=== PATIENT | female | born 1985 | race Caucasian/White ===

== ENCOUNTER → 2022-08-22 09:57 | Outpatient (CLI) | payer OTHER, SELFPAY ==
--- NOTE | 2022-08-22 09:59 | DI.US.S_ITS ---
PROCEDURE: US OB <= 14 WEEKS FETUS INDICATIONS: Dating and viability OUTSIDE/PRIOR DATING DATA: Last menstrual period (LMP): 06/22/2022. LMP-based estimated date of delivery (DALLIN): 03/29/2023. First dating scan (date and location): 08/22/2022. Estimated date of delivery (DALLIN) from first dating scan: 04/07/2023. The calculations are made using the LMP DALLIN of 08/22/2022. TECHNIQUE: Real-time scanning was performed of the fetus and maternal pelvic organs, with image documentation. Endovaginal scanning was also performed to better visualize the fetus and maternal ovaries. COMPARISON: None. FINDINGS: Embryo: Live intrauterine . [place]-rump length measures 1.2 cm, corresponding to 7 weeks 3 days Heart rate: 160 beats per minute Maternal organs: Ovaries are unremarkable. IMPRESSION: Single living intrauterine gestational at 7 weeks 3 days, slightly discordant with dating based on LMP (8 weeks 5 days). We strive to produce accurate, complete, and clear reports of imaging services. To assist us in improving patient care, this report was composed using standard report templates and voice recognition software. Therefore, it may contain abnormal punctuation, insertions and/or omissions. Occasional wrong-word or sound-alike substitutions may occur. Though we review the report and make efforts to correct it, we do recommend that the report be read carefully in proper context to recognize any text inaccuracies. Dictated by: Shahram Joiner M.D. on 08/22/2022 at 13:33 Approved by: Shahram Joiner M.D. on 08/22/2022 at 13:36
[2022-09-11 07:19] LABS: % Free Progesterone 2.4 % (.); Free Progesterone 28 ng/dL (.); Progesterone, Serum 1180 ng/dL (.)
== END ==
PROVIDERS: Referring Provider Family Medicine; Visit Provider Family Medicine
DX: O26.21 Pregnancy care for patient with recurrent pregnancy loss, first trimester (principal); Z3A.01 Less than 8 weeks gestation of pregnancy
CPT/HCPCS: 36415; 76801; 76817; 84144; 84999

== ENCOUNTER → 2022-09-17 10:53 | Outpatient (CLI) | payer OTHER, SELFPAY ==
[2022-09-17 14:33] LABS: Urine Chlamydia NOT DETECTED; Urine N gonorrhoeae NOT DETECTED
== END ==
PROVIDERS: Visit Provider Family Medicine
DX: Z34.01 Encounter for supervision of normal first pregnancy, first trimester (principal); Z3A.11 11 weeks gestation of pregnancy
CPT/HCPCS: 87491; 87591

== ENCOUNTER → 2022-09-17 10:57 | Outpatient (CLI) | payer OTHER, SELFPAY ==
[2022-09-17 12:32] LABS: Add Manual Diff / Slide Review NO; Basophils Absolute Auto 100 /uL (0-100); Basophils Percent Auto 0.5 % (0-2); Eosinophils Absolute Auto 200 /uL (0-450); Eosinophils Percent Auto 1.3 % (2-4); Hematocrit 33.4 % (36-46); Hemoglobin 11.5 g/dL (12.0-16.0); Lymphocytes Absolute Auto 2000 /uL (1100-4500); Lymphocytes Percent Auto 16.9 % (25-40); Mean Corpuscular HGB Conc 34.5 % (30-36); Mean Corpuscular Hemoglobin 33.2 PG (26-34); Mean Corpuscular Volume 96.1 fL (80-100); Monocytes Absolute Auto 600 /uL (0-900); Monocytes Percent Auto 4.8 % (3-14); Neutrophils Absolute Auto 8900 /uL (1500-7000); Neutrophils Percent Auto 76.5 % (50-75); Platelet Count 225 X10^3/uL (150-400); Red Blood Cell Count 3.48 X10^6/uL (4.0-5.2); Red Cell Distribution Width 12.4 % (11.6-14.8); White Blood Cell Count 11.6 X10^3/uL (4.5-11.0)
[2022-09-18 11:40] LABS: Varicella IgG Antibody 657 index (Immune >165)
[2022-09-18 18:02] LABS: HIV 1 & 2 Ab/Ag 4th Gen Combo NEGATIVE (NEGATIVE); Hep C Virus Ab w/Reflex Quant NEGATIVE s/c (NEGATIVE); Hepatitis B Surface Antigen NEGATIVE s/c (NEGATIVE); Rubella Antibody IgG 13.8 IU/mL (>15)
[2022-09-19 03:45] LABS: RPR Screen Non Reactive (Non Reactive)
== END ==
PROVIDERS: Family Medicine; Referring Provider Family Medicine; Visit Provider Family Medicine
DX: O09.511 Supervision of elderly primigravida, first trimester (principal); Z36.0 Encounter for antenatal screening for chromosomal anomalies; Z3A.11 11 weeks gestation of pregnancy
CPT/HCPCS: 36415; 80055; 86787; 86803; 86850; 86900; 86901; 87389; 87491; 87591

== ENCOUNTER → 2022-11-19 14:19 | Outpatient (CLI) | payer OTHER, SELFPAY ==
--- NOTE | 2022-11-19 14:20 | DI.US.S_ITS ---
PROCEDURE: US OB >= 14 WEEKS FETUS INDICATIONS: anatomy us OUTSIDE/PRIOR DATING DATA: Last menstrual period (LMP): 06/22/2022. LMP-based estimated date of delivery (DALLIN): 03/29/2023. First dating scan (date and location): 08/22/2022. Estimated date of delivery (DALLIN) from first dating scan: 04/07/2023. TECHNIQUE: Real-time scanning was performed of the fetus, with image documentation and biometric measurements. Endovaginal scanning: No COMPARISON: [facility], , OB <= 14 WEEKS FETUS, 08/22/2022, 10:10. FINDINGS: General: A single living intrauterine gestation is present. Presentation: Variable. Placenta: Placental position is posterior , without previa. Amniotic fluid index: 11.2 cm, normal range is 5-24 cm. Single deepest vertical pocket is 3 cm. heart rate: 147 beats per minute. Maternal cervical canal: 3.8 cm long. Normal lower limit is 2.5 cm. biometrics: Biparietal diameter: 50 mm; 21 weeks 1 day Head circumference: 174 mm; 20 weeks 0 days Abdominal circumference: 145 mm; 19 weeks 6 days Femur length: 32 mm; 19 weeks 6 days Clinically estimated gestational age: 20 weeks 1 day Composite gestational age from present scan: 20 weeks 2 days Estimated weight and percentile: 319 g, which is at the 31st percentile for gestational age Anatomic survey: Neuro: Ventricles are non-dilated at less than 10 mm. Cisterna magna is normal at 3-11 mm. Cerebellum is normal in size and morphology. Nuchal skin fold: Normal at less than 6 mm between 14-21 weeks gestational age. Face: Nose and lips, facial profile are normal. Spine: No evidence for spina bifida. Heart: 4-chambered heart is present, with normal ventricular outflow tracts. Diaphragm: Diaphragm is intact. Stomach: Left-sided stomach is present. Kidneys: No hydronephrosis. Normal is less than 5 mm in 2nd trimester, less than 7 mm in 3rd trimester. Cord: 3-vessel cord has orthotopic insertion. Bladder: Normal in size. Extremities: All 4 extremities identified. IMPRESSION: 1. Single living intrauterine gestation. 2. Normal survey of anatomy. We strive to produce accurate, complete, and clear reports of imaging services. To assist us in improving patient care, this report was composed using standard report templates and voice recognition software. Therefore, it may contain abnormal punctuation, insertions and/or omissions. Occasional wrong-word or sound-alike substitutions may occur. Though we review the report and make efforts to correct it, we do recommend that the report be read carefully in proper context to recognize any text inaccuracies Dictated by: Saul Yarbrough M.D. on 11/19/2022 at 15:35 Transcribed by: GOLD on 11/19/2022 at 15:37 Approved by: Saul Yarbrough M.D. on 11/19/2022 at 16:43
== END ==
PROVIDERS: PCP Specialist; Referring Provider Family Medicine; Visit Provider Family Medicine
DX: Z34.92 Encounter for supervision of normal pregnancy, unspecified, second trimester (principal); Z3A.20 20 weeks gestation of pregnancy
CPT/HCPCS: 76811

== ENCOUNTER → 2023-01-20 10:45 | Outpatient (CLI) | payer OTHER, SELFPAY ==
[2023-01-20 12:56] LABS: Hematocrit 33.5 % (36-46); Hemoglobin 11.5 g/dL (12.0-16.0)
[2023-01-20 13:25] LABS: GTT (PREG) 1 Hour PP 50gm Dose 93 mg/dL (76-139)
== END ==
PROVIDERS: PCP Specialist; Referring Provider Family Medicine; Visit Provider Family Medicine
DX: Z34.92 Encounter for supervision of normal pregnancy, unspecified, second trimester (principal); Z3A.25 25 weeks gestation of pregnancy
CPT/HCPCS: 36415; 82950; 85014; 85018

== ENCOUNTER → 2023-03-10 10:38 | Outpatient (CLI) | payer OTHER, SELFPAY ==
[2023-03-11 16:18] LABS: Strep Grp B PCR NEG for Grp B Strep
== END ==
PROVIDERS: PCP Specialist; Visit Provider Family Medicine
DX: Z34.83 Encounter for supervision of other normal pregnancy, third trimester (principal); Z3A.36 36 weeks gestation of pregnancy
CPT/HCPCS: 87653

== ENCOUNTER 2023-04-06 20:47 | Outpatient (CLI) | payer OTHER, SELFPAY ==
--- NOTE | 2023-04-06 22:04 | P.TNLD_ITS ---
Visit Information Visit Information Date of evaluation: 04/06/23 Primary OB Provider: Eva Keys On-call OB Provider: Alice Wesley Reason for Evaluation: Yes rule out labor Comments/Additional reasons for admission: 37YO @ 39wks 6days here for evaluation of contractions. Has been [place] irregularly all day, contractions are currently 2-9 minutes apart and uncomfortable, but not intolerable. Has been staying in a hotel the last few days. Is mainly tired and frustrated with inability to plan, looking for guidance on what to do. +FM. Some mucus discharge with a small streak of blood earlier. No active vaginal bleeding or leaking of fluid. Uncomplicated care w/ . Accompanied by partner and computer tester. Vital Signs Vital Signs: BP 137/75mmHg, HR 86, T 36.2C Temporal PFSH Medical History Abnormal cervical Pap smear with positive HPV DNA test (~2016) Chicken pox (~1993) Chlamydia (~2016) Surgical History History of removal of skin mole [place] teeth extracted (~2004) Family History Mother Hypertension Father No problems noted. Grandmother Myocardial infarction Hypertension Grandfather Myocardial infarction Alcoholic Grandmother Macular degeneration Grandfather Alcoholic Sister Celiac disease Social History marital status: unmarried,single number of children: 0 household members: spouse lives independently: Yes caregiver/support person: No housing: house pets and animals: Yes (1 cat: aware of toxo precautions) education level: college occupational status: employed current occupational exposures/hazards: No special sowmya needs: No travel history: recent seatbelt use: always helmet use: Yes water heater temp set < 120 deg: Yes working smoke detector in home: Yes fire extinguisher in home: Yes carbon monox detector in home: Yes firearms in home: No do you feel safe at home: Yes Smoking Status: Former smoker Tobacco: How many years used: 3 quit status: has quit before second hand exposure: No (Boyfriend vapes, but not around her.) alcohol intake: former substance use type: does not use during the past year weight has: remained stable well-balanced diet: daily or most days daily servings fruits/ve or more times/day caffeine: Yes (Aware of 200mg limit of caffeine. ) Type(s) of exercise: none frequency: 3-4 times per week duration: 15-30 minutes/day Review of Systems Review of Systems ROS: Yes All systems reviewed with the patient and are negative except as otherwise documented Exam Vital Signs (past 8 hours): see above Presentation: vertex Evaluation Evaluation Baseline heart rate: 125 Variability: Moderate (11-25) monitor accelerations: Present Monitor Decelerations: Absent Contraction Frequency (minutes): 5 Uterine Contraction Intensity: Mild Category of Tracing: Reactive Cervical dilation (cm): 2 Cervical effacement (%): 80 station: -2 Comments: posterior intact Diagnosis, Plan/Disposition Final Diagnosis (1) False labor after 37 completed weeks of gestation: Status: Acute Plan/Disposition Plan: Recommend staying of [place] until spontaneous labor occurs. Emotional support given for the unpredictability of the timing of labor. Recommend rest and not exhausting herself trying to go into labor. Offered repeat exam in 2-4 hours if contractions worsen or persist. Alternatively, if contractions ease and she does decide to go back home tomorrow, offered repeat exam prior to returning to the [place], for her knowledge. Encouragement given for 2cm with reassurance that this is great progress. Routine precautions reviewed. RTC as previously scheduled. OB Disposition: home
== END 2023-04-06 22:07 | disposition home or self-care (01) ==
LOC: OB 04-08 06:18
PROVIDERS: PCP Specialist; Referring Provider Nurse Practitioner Obstetrics & Gynecology; Visit Provider Nurse Practitioner Obstetrics & Gynecology
DX: O47.1 False labor at or after 37 completed weeks of gestation (principal); Z3A.39 39 weeks gestation of pregnancy
CPT/HCPCS: 59025; G0378; G0379

== ENCOUNTER 2023-04-08 04:07 | Inpatient (IN) | payer OTHER, SELFPAY ==
[2023-04-08] MEDS: LACTATED RINGERS 1,000 ML 100 ML IV ×3 (05:10→12:05)
[2023-04-08] MEDS: fentaNYL 100 MCG/2 ML INJ 50 MCG IV ×2 (05:11→06:41)
[2023-04-08 05:36] LABS: Add Manual Diff / Slide Review NO; Basophils Absolute Auto 100 /uL (0-100); Basophils Percent Auto 0.4 % (0-2); Eosinophils Absolute Auto 300 /uL (0-450); Eosinophils Percent Auto 1.9 % (2-4); Hematocrit 36.5 % (36-46); Hemoglobin 12.3 g/dL (12.0-16.0); Lymphocytes Absolute Auto 2300 /uL (1100-4500); Lymphocytes Percent Auto 15.7 % (25-40); Mean Corpuscular HGB Conc 33.8 % (30-36); Mean Corpuscular Hemoglobin 32.4 PG (26-34); Monocytes Absolute Auto 700 /uL (0-900); Monocytes Percent Auto 4.5 % (3-14); Neutrophils Absolute Auto 11400 /uL (1500-7000); Neutrophils Percent Auto 77.5 % (50-75); Platelet Count 269 X10^3/uL (150-400); Red Cell Distribution Width 13.2 % (11.6-14.8); White Blood Cell Count 14.7 X10^3/uL (4.5-11.0)
[2023-04-08 05:47] VITALS: BP 140/79
--- NOTE | 2023-04-08 08:49 | P.HPOB_ITS ---
OB HPI Date/Time Date of admission: 04/08/23 Date Patient Seen: 04/08/23 Time Patient Seen: 07:50 History of Present Condition Chief complaint: Labor DALLIN Calculator Estimated Delivery Date Method Current WG Current Estimate 04/07/23 Manual 40w 1d Final DALLIN - SALINA Other Estimates 03/29/23 LMP (Certain) 41w 3d 04/07/23 Ultrasound #1 40w 1d Estimated Gestational Age (weeks): 40w1d : 3 Para: 0 Narrative: Pt is a 37yo at 40w1d here with regular painful contractions. Pt reports contractions starting on 04/05. She was evaluated in L&D on 04/06 and ultimately discharged with no cervical change. The pt reports that her contractions dissipated, however increased in intensity and frequency significantly again last night. She presented to the ER in Thursday, where she was thought to be 4cm dilated. She was [place] for evaluation here. The pt denies any vaginal bleeding or LOF. She is feeling her baby move regularly. Her has been uncomplicated. care: good care, initiated at week # (11) and pounds weight gain (44) Dating criteria OB: LMP confirmed by 1st trimester US Ultrasounds: normal 1st trimester US and normal mid trimester US Obstetrical complications: none Medical complications OB: none Preadmission Labs Last OB Lab Results: Blood Type AB Positive 04/08/23 05:00 Antibody Screen Negative 04/08/23 05:00 Hematocrit 36.5 % (36-46) 04/08/23 05:00 Hemoglobin 12.3 g/dL (12.0-16.0) 04/08/23 05:00 Hepatitis B Surface Antigen Negative s/c (NEGATIVE) 09/17/22 11 :15 Hepatitis C Antibody Negative s/c (NEGATIVE) 09/17/22 11:15 Rubella Antibody 13.8 IU/mL (>15) L 09/17/22 11:15 Varicella-Zoster IgG Antibody 657 index (Immune >165) 09/17/22 11:15 Glucose 1 Hour 93 mg/dL (76-139) 01/20/23 10:58 Group B Streptococcus (PCR) Neg for grp b strep 03/10/23 10:38 -: Chlamydia screen: negative, Gonorrhea screen: negative and Urine: negative -: PAP smear: Normal Genetic Screens: Cell-free DNA: Normal External Labs -: Urine: negative Prior (ies) Past Pregnancies Del. Date GA/Weeks Labor Lgth Wt Sex Route Outcome Anesthesia Place Delv Breastfeed Preg Comp Name 11/10/20 5-6 spontaneous 03/12/21 12 spontaneous Evaluation Evaluation Baseline heart rate: 140 Variability: Moderate (11-25) monitor accelerations: Present Monitor Decelerations: Absent Contraction Frequency (minutes): 2 Uterine Contraction Intensity: Strong/Firm Status: Category l Dilation (cm): 5 Effacement (%): 90 Dilation: >/=5 cm Effacement: >/=80% station: 0 Position of cervix: posterior Consistency: soft [place] score: 10 PFSH Medical History Abnormal cervical Pap smear with positive HPV DNA test (~2016) Chicken pox (~1993) Chlamydia (~2016) Surgical History History of removal of skin mole [place] teeth extracted (~2004) Family History Mother Hypertension Father No problems noted. Grandmother Myocardial infarction Hypertension Grandfather Myocardial infarction Alcoholic Grandmother Macular degeneration Grandfather Alcoholic Sister Celiac disease Social History marital status: unmarried,single number of children: 0 household members: spouse lives independently: Yes caregiver/support person: No housing: house pets and animals: Yes (1 cat: aware of toxo precautions) education level: college occupational status: employed current occupational exposures/hazards: No special sowmya needs: No travel history: recent seatbelt use: always helmet use: Yes water heater temp set < 120 deg: Yes working smoke detector in home: Yes fire extinguisher in home: Yes carbon monox detector in home: Yes firearms in home: No do you feel safe at home: Yes Smoking Status: Former smoker Tobacco: How many years used: 3 quit status: has quit before second hand exposure: No (Boyfriend vapes, but not around her.) alcohol intake: former substance use type: does not use during the past year weight has: remained stable well-balanced diet: daily or most days daily servings fruits/ve or more times/day caffeine: Yes (Aware of 200mg limit of caffeine. ) Type(s) of exercise: none frequency: 3-4 times per week duration: 15-30 minutes/day Meds Home Medications and Allergies Home Medications Medication Instructions Recorded Confirmed Type prenat.vits,clare,[id number] 1 tab PO DAILY 03/06/21 04/08/23 History Allergies Allergy/AdvReac Type Severity Reaction Status Date / Time No Known Drug Allergies Allergy Verified 03/24/23 10:11 OB Exam Narrative Exam Narrative: Gen: NAD, sitting comfortably in bed, appears well CV: RRR, no murmurs Resp: clear to auscultation bilaterally Abd: soft, nontender, gravid Ext: no edema Objective Labs 04/08/23 05:00 Labs: Laboratory Results - last 24 hr 04/08/23 04/08/23 05:00 05:00 WBC 14.7 H RBC 3.80 L Hgb 12.3 Hct 36.5 MCV 96.0 MCH 32.4 MCHC 33.8 RDW 13.2 Plt Count 269 Neut % (Auto) 77.5 H Lymph % (Auto) 15.7 L [place] % (Auto) 4.5 Eos % (Auto) 1.9 L Baso % (Auto) 0.4 Neut # (Auto) 81389 H Lymph # (Auto) 2300 [place] # (Auto) 700 Eos # (Auto) 300 Baso # (Auto) 100 Blood Type AB Positive Antibody Screen Negative Assessment and Plan Assessment and Plan Assessment and Plan narrative: Pt is a 37yo at 40w1d here in active labor. Pt has been making relatively slow cervical change, however. AROM performed with clear fluid produced after informed consent. GBS negative, Rh positive. - Expectant management, anticipate - FHT reassuring - GBS negative, no prophylaxis indicated - Pt has received Fentanyl for pain control thus far, okay for nitrous oxide or epidural as desired
--- NOTE | 2023-04-08 11:10 | PM.AN.REGBLK ---
[facility] <Lucho Chen MD - Last Filed: 04/08/23 11:15> Pre-procedure Procedure: Continuous Lumbar Epidural for L&D PMH/ROS narrative: healthy PSH/Anesthesia history narrative: None Exam narrative: WNL Labs: Hct 36.5 % (36-46) 04/08/23 05:00 Plt Count 269 X10^3/uL (150-400) 04/08/23 05:00 Medications: Current Medications Generic Name Dose Route Start Last Admin Trade Name Freq PRN Reason Stop Dose Admin Carboprost Tromethamine 250 mcg 04/08/23 04:27 Carboprost 250 Mcg/Ml Ampul IM Q90M PRN Bleeding Fentanyl 50 mcg 04/08/23 04:27 04/08/23 06:41 Fentanyl 100 Mcg/2 Ml Inj IV 50 mcg Q1H PRN Administration Pain, Moderate (4-6) Oxytocin/Lactated Ringer's 30 unit in 500 mls @ 200 mls/hr 04/08/23 04:27 Oxytocin Premix IV CONT PRN Bleeding Protocol Tranexamic Acid 1,000 mg/ 100 mls @ 200 mls/hr 04/08/23 04:27 Sodium Chloride IV NOW PRN Bleeding Lactated Ringer's 1,000 mls @ 100 mls/hr 04/08/23 04:30 04/08/23 10:42 Lactated Ringers IV 100 mls/hr CONT LUIS DANIEL Administration Lidocaine HCl 20 ml 04/08/23 04:27 Lidocaine 1% 20 Ml INJ INTRA-OP PRN Post Delivery Methylergonovine Maleate 0.2 mg 04/08/23 04:27 Methylergonovine 0.2 Mg Tablet PO Q6HR PRN Heavy Bleeding Methylergonovine Maleate 0.2 mg 04/08/23 04:27 Methylergonovine 0.2 Mg/Ml Vial IM NOW PRN Bleeding Misoprostol 800 mcg 04/08/23 04:27 Misoprostol 200 Mcg Tablet MN NOW PRN Bleeding Misoprostol 400 mcg 04/08/23 04:27 Misoprostol 200 Mcg Tablet SL NOW PRN Bleeding Naloxone HCl 0.2 mg 04/08/23 04:27 Naloxone 0.4 Mg/Ml Vial IV Q2MIN PRN Opiate Reversal Ondansetron HCl 4 mg 04/08/23 04:27 Ondansetron 4 Mg/2 Ml Inj IV Q4HR PRN Nausea And Vomiting Oxytocin 10 unit 04/08/23 04:27 Oxytocin 10 Unit/Ml Vial IM NOW PRN Bleeding Allergies: Allergies Allergy/AdvReac Type Severity Reaction Status Date / Time No Known Drug Allergies Allergy Verified 03/24/23 10:11 Procedure Insertion date: 04/08/23 Insertion time: 10:45 Prep/Local: betadine x3 and 1% lidocaine Interspace: L3-4 Patient position: sitting Needle: 18 gauge Hustead Loss of resistance with: air EDDIE at (cm): 8 Catheter placed at SKIN (cm): 12 Catheter in SPACE (cm): 4 Initial Medications TEST DOSE time: 10:40 BOLUS DOSE time: 10:42 BOLUS DOSE (mL): 10 BOLUS DOSE med: 0.25% bupivacaine (Fentanly 100mcg) Infusion INFUSION: 0.125% bupivacaine and with fentanyl 2 mcg/mL Initial rate (mL/hr): 12 Post-procedure Anesthesia time START: 10:30 <Dmitriy River, DO - Last Filed: 04/08/23 17:52> Infusion Subsequent interventions: Post-procedure Anesthesia time END: 16:06 Post-procedure Anesthesia Assessment: Yes CV function: HR/BP stable, Yes Resp function: RR/sat/airway adequate, Yes Post-op hydration adequate, Yes Pain control adequate, Yes Nausea & vomiting absent, Yes Temperature > 36 C, Yes Mental status appropriate and No Anesthesia complications
--- NOTE | 2023-04-08 15:14 | PM.OBPNLAB ---
Date/Time Date Patient Seen: 04/08/23 Time Patient Seen: 13:15 Pain Control Pain control: epidural Pelvic Exam Dilation (cm): 5.5 Effacement (%): 90 station: 0 Amniotic membrane status: Ruptured Contractions Monitor mode: External Pitocin rate (mU/min): 2 Contraction frequency (min): 5 Contraction intensity: Strong/Firm Status status: Category l Heart Rate Baseline: 140 Monitor Accelerations: Present Monitor Decelerations: Absent Monitor Variability: Moderate Assessment and Plan Comments: Pt is a 37yo at 40w1d here in active labor.? AROM performed with clear fluid produced after informed consent. Pt making slow cervical change, contractions spaced. Pitocin initiated to augment labor. GBS negative, Rh positive. - Expectant management, anticipate - FHT reassuring
[2023-04-08] MEDS: METHYLERGONOVINE 0.2 MG/ML VIAL IM (16:12)
[2023-04-08] MEDS: TRANEXAMIC ACID 1,000 MG in SODIUM CHLORIDE 0.9% 100 ML 200 MG IV (16:18)
--- NOTE | 2023-04-08 16:31 | PM.OBPRVD ---
Labor & Delivery Delivery date: 04/08/23 Cervical ripening method: none Induction method: none Delivery augmentation: rupture of membranes and pitocin Delivery monitor: external FHT and external uterine Route of delivery: Episiotomy description: None L&D Laceration Description: Perineal - 2nd Degree and Labial (right) Quantitative Blood Loss: 400 Anesthesia Type: Epidural Complications: None Narrative: PROCEDURE: at 40w1d presented in active labor and was admitted to Labor and Delivery. The patient progressed through the 1st stage over 3 hours. AROM occured at 8:22 with clear fluid. Pain was controlled with an epidural. The patient progressed through the 2nd stage over 1 hours and delivered a viable female infant with APGARs 8/9 at 15:56 via without complications. Nuchal x1 was reduced after delivery. The cord was cut and clamped after it stopped pulsating. The placenta delivered with gentle cord traction, and appeared complete. The perineum and vagina were inspected with 2nd degree laceration repaired with 2-O Vicryl, and right labial laceration repaired with 3-O Chromic. Due to brisk bleeding after the placenta delivered, the pt was given TXA and Methergine. Bleeding was then appropriate. Needle and sponge counts were correct.? The vagina was inspected and no items were left in situ. Timothy was doing well with her (name not yet decided) and her , Cory, at bedside. PREPROCEDURE DIAGNOSIS: Intrauterine at 40w1d GBS negative RH positive POSTPROCEDURE DIAGNOSIS: Intrauterine at 40w1d, delivered Same as preprocedure Baby 1: gender: Female Presentation: vertex Position: Right Occiput Anterior Placenta delivery description: Spontaneous Cord Vessel Description: 3 Vessels and Nuchal Cord score (1 min): 8 score (5 min): 9 weight: 7 lb 9.519 oz Plan for aftercare: Routine care
[2023-04-09 05:12] LABS: Add Manual Diff / Slide Review NO; Basophils Absolute Auto 100 /uL (0-100); Basophils Percent Auto 0.7 % (0-2); Eosinophils Absolute Auto 300 /uL (0-450); Hematocrit 31.5 % (36-46); Hemoglobin 10.7 g/dL (12.0-16.0); Lymphocytes Absolute Auto 2400 /uL (1100-4500); Mean Corpuscular HGB Conc 34.1 % (30-36); Mean Corpuscular Hemoglobin 33.1 PG (26-34); Mean Corpuscular Volume 96.9 fL (80-100); Monocytes Absolute Auto 1000 /uL (0-900); Monocytes Percent Auto 6.2 % (3-14); Neutrophils Absolute Auto 12200 /uL (1500-7000); Neutrophils Percent Auto 76.1 % (50-75); Platelet Count 220 X10^3/uL (150-400); Red Blood Cell Count 3.25 X10^6/uL (4.0-5.2); Red Cell Distribution Width 13.1 % (11.6-14.8)
[2023-04-09] MEDS: PRENATAL VIT,CALC/IRON/FOLIC 1 TABLET 1 TAB PO (08:53)
[2023-04-09] MEDS: DOCUSATE 100 MG CAPSULE PO (08:53)
[2023-04-09] MEDS: ACETAMINOPHEN 325 MG TABLET 650 MG PO (10:23)
[2023-04-09] MEDS: IBUPROFEN 600 MG TABLET PO (10:24)
--- NOTE | 2023-04-09 11:36 | PM.OBDS.1 ---
Discharge Providers Provider Date of admission: 04/08/23 04:07 Discharge Date: 04/09/23 Primary care physician: Magdalena Walton MD Consults: 04/08/23 04:27 Consult to Anesthesiology Urgent Comment: Consulting Provider: Dmitriy River Reason for consultation: Epidural 04/09/23 16:30 Consult to Svp Of Digital Routine Comment: Discharge provider: Eva Keys MD Summary Hospital Course Diagnoses: Intrauterine at 40w1d GBS negative RH positive Spontaneous vaginal delivery Hospital Course: The pt presented in active labor. She had an epidural for pain control. AROM was performed with clear fluid present. She progressed to complete and had an of a viable baby girl. A 2nd degree perineal and right labial laceration were repaired. The pts bleeding was brisk, but slowed appropriately with TXA and Methergine, as well as the usual pitocin. , there were no complications. At the time of discharge she was voiding, ambulating, and passing flatus without difficulty. Her lochia was decreasing appropriately. Her pain was well controlled. She was with good latch. She will f/u in 6 weeks for check. Peripartum Data Delivery Method: Natural Vaginal Laceration Description: Perineal - 2nd Degree and Labial Episiotomy description: None complications: none 1: Gender: Female Disposition of : home Time Spent with Patient Time attestation: Total time spent providing and/or coordinating discharge services: Objective Labs 04/09/23 05:05 Labs: Laboratory Results - last 24 hr 04/09/23 05:05 WBC 16.0 H RBC 3.25 L Hgb 10.7 L Hct 31.5 L MCV 96.9 MCH 33.1 MCHC 34.1 RDW 13.1 Plt Count 220 Neut % (Auto) 76.1 H Lymph % (Auto) 15.0 L [place] % (Auto) 6.2 Eos % (Auto) 2.0 Baso % (Auto) 0.7 Neut # (Auto) 08130 H Lymph # (Auto) 2400 [place] # (Auto) 1000 H Eos # (Auto) 300 Baso # (Auto) 100 Exam Narrative Exam Narrative: Gen: NAD, sitting comfortably in bed, appears well CV: RRR, no murmurs Resp: clear to auscultation bilaterally Abd: soft, appropriately tender, fundus firm and below the umbilicus, nondistended Ext: no edema Discharge Plan Discharge Plan Patient Disposition: Home Discharge orders & Medications Prescriptions: New acetaminophen 325 mg Tablet 650 mg PO Q6HR PRN (Reason: Pain, Mild (1-3)) Qty: 30 0RF docusate sodium 100 mg Capsule 100 mg PO DAILY Qty: 30 0RF ibuprofen 600 mg Tablet 600 mg PO Q6HR PRN (Reason: Pain, Mild (1-3)) Qty: 30 0RF Continued prenat.vits,clare,[id number] Tablet 1 tab PO DAILY Follow up/Referrals: Eva Keys MD [Physician] - ( Appt w/ Dr. Keys: Thursday, @ 1:30pm) Diet/Activity/Treatments Diet: Diet as Tolerated and Regular Skin/Wound/Dressing Care Report to your healthcare provider any signs of infection, such as:: chills, fever, increased pain and unusual drainage Visit Report/Discharge Packet Stand Alone Forms: Discharge: Care, Patient Portal/API, Stroke Signs & Symptoms Discharge Data Primary Care Provider: Magdalena Walton Discharges patient from system. Discharge Date/Time: 04/09/23 13:15
[2023-04-09 11:37] VITALS: BP 117/80; PULSE 91; RESP 16; TEMP 36.8
== END 2023-04-09 13:15 | disposition home or self-care (01) | DRG 806 ==
PROVIDERS: Admitting Provider Family Medicine; PCP Specialist; Referring Provider Family Medicine; Visit Provider Family Medicine
DX: O70.1 Second degree perineal laceration during delivery (principal); O47.1 False labor at or after 37 completed weeks of gestation; Z37.0 Single live birth; Z3A.40 40 weeks gestation of pregnancy; Z3A.39 39 weeks gestation of pregnancy
CPT/HCPCS: 36415; 59025; 59050; 59400; 85025; 86850; 86900; 86901; G0379; J2210; J3010

== ENCOUNTER → 2024-02-15 11:07 | Outpatient (CLI) | payer OTHER, MEDICAID, SELFPAY ==
[2024-02-15 13:54] LABS: Add Manual Diff / Slide Review NO; Basophils Absolute Auto 100 /uL (0-100); Basophils Percent Auto 0.7 % (0-2); Eosinophils Absolute Auto 100 /uL (0-450); Eosinophils Percent Auto 1.2 % (2-4); Hematocrit 35.1 % (36-46); Hemoglobin 12.1 g/dL (12.0-16.0); Lymphocytes Absolute Auto 2500 /uL (1100-4500); Lymphocytes Percent Auto 19.9 % (25-40); Mean Corpuscular HGB Conc 34.4 % (30-36); Mean Corpuscular Hemoglobin 33.3 PG (26-34); Mean Corpuscular Volume 96.6 fL (80-100); Monocytes Absolute Auto 600 /uL (0-900); Monocytes Percent Auto 4.7 % (3-14); Neutrophils Absolute Auto 9400 /uL (1500-7000); Neutrophils Percent Auto 73.5 % (50-75); Platelet Count 262 X10^3/uL (150-400); Red Blood Cell Count 3.63 X10^6/uL (4.0-5.2); Red Cell Distribution Width 12.6 % (11.6-14.8); White Blood Cell Count 12.8 X10^3/uL (4.5-11.0)
[2024-02-15 14:01] LABS: Natera Collection Specimen Collected
[2024-02-15 15:18] LABS: Appearance Urine UA CLEAR; Bilirubin Urine UA NEGATIVE (NEGATIVE); Color Urine UA YELLOW; Glucose Urine UA NEGATIVE (Negative); Ketones Urine UA NEGATIVE (NEGATIVE); Leukocyte Esterase Urine UA NEGATIVE (NEGATIVE); Nitrite Urine UA NEGATIVE (Negative); Occult Blood Urine UA NEGATIVE (Negative); Protein Urine UA NEGATIVE (Negative); Specific Gravity Urine UA <=1.005 (1.000-1.035); Urobilinogen Urine UA 0.2 E.U./dL (0.2)
[2024-02-15 18:54] LABS: Hepatitis B Surface Antigen NEGATIVE s/c (NEGATIVE); Rubella Antibody IgG 13.8 IU/mL (>15)
[2024-02-15 19:30] LABS: HIV 1 & 2 Ab/Ag 4th Gen Combo NEGATIVE (NEGATIVE); Hep C Virus Ab w/Reflex Quant NEGATIVE s/c (NEGATIVE)
[2024-02-16 05:13] LABS: RPR Screen Non Reactive (Non Reactive)
[2024-02-16 08:36] LABS: Varicella IgG Antibody 634 index (Immune >165)
== END ==
PROVIDERS: PCP Specialist; Referring Provider Family Medicine; Visit Provider Family Medicine
DX: Z34.81 Encounter for supervision of other normal pregnancy, first trimester (principal)
CPT/HCPCS: 36415; 80055; 81003; 86787; 86803; 86850; 86900; 86901; 87086; 87389

== ENCOUNTER → 2024-04-13 12:50 | Outpatient (CLI) | payer OTHER, MEDICAID, SELFPAY ==
--- NOTE | 2024-04-13 12:52 | DI.US.S_ITS ---
PROCEDURE: US OB >= 14 WEEKS FETUS INDICATIONS: anatomy OUTSIDE/PRIOR DATING DATA: Last menstrual period (LMP): 12/07/2023. LMP-based estimated date of delivery (DALLIN): 09/12/2024. First dating scan (date and location): Not applicable Estimated date of delivery (DALLIN) from first dating scan: Not applicable. The calculations are made using the clinical DALLIN of 09/12/2024. TECHNIQUE: Real-time scanning was performed of the fetus, with image documentation and biometric measurements. Endovaginal scanning: No COMPARISON: [facility], OB >= 14 WEEKS FETUS, 11/19/2022, 14:24. FINDINGS: General: A single living intrauterine gestation is present. Presentation: Variable. Placenta: Placental position is posterior , without previa. Amniotic fluid index: 15.4 cm, normal range is 5-24 cm. Single deepest vertical pocket is 4.4 cm. heart rate: 155 beats per minute. Maternal cervical canal: 5.2 cm long. Normal lower limit is 2.5 cm. biometrics: Biparietal diameter: 4.3 cm, 19 week 0 day Head circumference: 15.1 cm, 18 week 1 day Abdominal circumference: 14.0 cm, 19 week 3 day Femur length: 2.8 cm, 18 week 3 day Clinically estimated gestational age: 18 week 2 day Composite gestational age from present scan: 18 week 5 day Estimated weight and percentile: 261 g, 79 percentile Anatomic survey: Neuro: Ventricles are non-dilated at less than 10 mm. Cisterna magna is normal at 3-11 mm. Cerebellum is normal in size and morphology. Nuchal skin fold: Normal at less than 6 mm between 14-21 weeks gestational age. Face: Nose and lips, facial profile are normal. Spine: No evidence for spina bifida. Heart: 4-chambered heart is present, with normal ventricular outflow tracts. Diaphragm: Diaphragm is intact. Stomach: Left-sided stomach is present. Kidneys: No hydronephrosis. Normal is less than 5 mm in 2nd trimester, less than 7 mm in 3rd trimester. Cord: 3-vessel cord has orthotopic insertion. Bladder: Normal in size. Extremities: All 4 extremities identified. IMPRESSION: Single live intrauterine consistent with a 18 week 5 day gestation by current ultrasound Normal anatomic survey Approved by: David Monahan M.D. on 04/13/2024 at 15:51
== END ==
PROVIDERS: PCP Specialist; Referring Provider Family Medicine; Visit Provider Family Medicine
DX: Z34.82 Encounter for supervision of other normal pregnancy, second trimester (principal); Z3A.18 18 weeks gestation of pregnancy
CPT/HCPCS: 76811

== ENCOUNTER → 2024-08-22 11:24 | Outpatient (CLI) | payer OTHER, SELFPAY ==
[2024-08-23 14:35] LABS: Strep Grp B PCR NEG for Grp B Strep
== END ==
PROVIDERS: PCP Specialist; Visit Provider Family Medicine
DX: Z34.81 Encounter for supervision of other normal pregnancy, first trimester (principal)
CPT/HCPCS: 87653

== ENCOUNTER 2024-09-18 00:46 | Inpatient (IN) | payer OTHER, SELFPAY ==
[2024-09-18 00:54] VITALS: BP 133/65
[2024-09-18 04:23] LABS: Add Manual Diff / Slide Review NO; Basophils Absolute Auto 300 /uL (0-100); Eosinophils Absolute Auto 300 /uL (0-450); Eosinophils Percent Auto 2.5 % (2-4); Hematocrit 32.2 % (36-46); Lymphocytes Absolute Auto 2800 /uL (1100-4500); Lymphocytes Percent Auto 20.7 % (25-40); Mean Corpuscular HGB Conc 34.2 % (30-36); Mean Corpuscular Hemoglobin 32.3 PG (26-34); Mean Corpuscular Volume 94.3 fL (80-100); Monocytes Absolute Auto 500 /uL (0-900); Monocytes Percent Auto 3.6 % (3-14); Neutrophils Absolute Auto 9500 /uL (1500-7000); Neutrophils Percent Auto 71.2 % (50-75); Platelet Count 279 X10^3/uL (150-400); Red Blood Cell Count 3.41 X10^6/uL (4.0-5.2); Red Cell Distribution Width 13.3 % (11.6-14.8); White Blood Cell Count 13.3 X10^3/uL (4.5-11.0)
[2024-09-18] MEDS: miSOPROStoL 25 MCG TABLET 50 MCG PO ×2 (08:18→12:28)
--- NOTE | 2024-09-18 09:07 | P.HPOB_ITS ---
OB HPI Date/Time Date of admission: 09/18/24 Date Patient Seen: 09/18/24 History of Present Condition Chief complaint: Water might have broken DALLIN Calculator 2 Estimated Delivery Date Method Current WG Current Estimate 09/12/24 LMP (Certain) 40w 6d Other Estimates 09/13/24 Ultrasound #1 40w 5d Estimated Gestational Age (weeks): 40w6d : 4 Para: 1 Narrative: Pt is a 38yo at 40w6d here with leaking fluid. Pt reports feeling a leak starting around 7pm last night. It has continued since then. No vaginal bleeding or painful contractions, only mild cramping. She is feeling her baby move regularly. Her has been uncomplicated. care: good care, initiated at week # (30) and pounds weight gain (30) Dating criteria OB: LMP confirmed by 1st trimester US Ultrasounds: normal 1st trimester US and normal mid trimester US Obstetrical complications: none Medical complications OB: none Preadmission Labs Last OB Lab Results: 2 Blood Type AB Positive 09/18/24 04:05 Antibody Screen Negative 09/18/24 04:05 Hct 32.2 % (36-46) L 09/18/24 04:05 Hgb 11.0 g/dL (12.0-16.0) L 09/18/24 04:05 Hep Bs Antigen Negative s/c (NEGATIVE) 02/15/24 13:01 Hepatitis C Antibody Negative s/c (NEGATIVE) 02/15/24 13:01 Rubella Antibody 13.8 IU/mL (>15) L 02/15/24 13:01 VZV IgG Antibody 634 index (Immune >165) 02/15/24 13:01 Glucose 1 Hr 50 gm 93 mg/dL (76-139) 01/20/23 10:58 Group B Strep (PCR) Neg for grp b strep 08/22/24 11:24 -: Urine: negative Genetic Screens: Cell-free DNA: Normal External Labs -: Urine: negative Prior (ies) Past Pregnancies Del. Date GA/Weeks Labor Lgth Wt Sex Route Outcome Anesthesia Place Delv Breastfeed Preg Comp Name 11/10/20 5-6 spontaneous 03/12/21 12 spontaneous 04/08/23 40 12 7 lb 9 oz Female vaginal live - full term ep idural IH Attempted, ~1 month none Jodee PFSH Medical History (Updated 02/11/24 @ 11:50 by Cary Cruz RN) depression Pain of breast during (spontaneous vaginal delivery) Chicken pox (~1993) Chlamydia (~2016) Abnormal cervical Pap smear with positive HPV DNA test (~2016) Surgical History Meadow teeth extracted (~2004) History of removal of skin mole Family History Mother Hypertension Father No problems noted. Grandmother Myocardial infarction Hypertension Grandfather Myocardial infarction Alcoholic Grandmother Macular degeneration Grandfather Alcoholic Sister Celiac disease Social History marital status: unmarried,single number of children: 1 household members: children lives independently: Yes caregiver/support person: No housing: house pets and animals: Yes (1 cat: aware of toxo precautions) education level: college occupational status: unemployed current occupational exposures/hazards: No special sowmya needs: No travel history: over 6 months ago other: recently left her partner (father of both children), states she is safe seatbelt use: always helmet use: Yes water heater temp set < 120 deg: Yes working smoke detector in home: Yes fire extinguisher in home: Yes carbon monox detector in home: Yes firearms in home: No do you feel safe at home: Yes Smoking Status: Former smoker Tobacco: How many years used: 3 quit status: has quit before second hand exposure: No (Boyfriend vapes, but not around her.) alcohol intake: former substance use type: does not use during the past year weight has: other well-balanced diet: daily or most days daily servings fruits/ve or more times/day caffeine: Yes (single cup coffee in AM) Type(s) of exercise: walking frequency: 3-4 times per week duration: 15-30 minutes/day Meds Home Medications and Allergies Home Medications Medication Instructions Recorded Confirmed Type prenat.vits,clare,[id number] 1 tab PO DAILY 03/06/21 09/18/24 History Allergies Allergy/AdvReac Type Severity Reaction Status Date / Time No Known Drug Allergies Allergy Verified 09/18/24 06:24 OB Exam Resp Effort & Inspection: normal respiratory effort Auscultation: clear to auscultation bilaterally Cardio Rate: regular rate Rhythm: regular rhythm Heart Sounds: S1 normal, S2 normal and no murmurs GI Inspection: non-distended Palpation: Yes soft and No tender Presentation: vertex Objective Labs 09/18/24 04:05 Labs: Laboratory Results - last 24 hr 09/18/24 04:05 WBC 13.3 H RBC 3.41 L Hgb 11.0 L Hct 32.2 L MCV 94.3 MCH 32.3 MCHC 34.2 RDW 13.3 Plt Count 279 Neut % (Auto) 71.2 Lymph % (Auto) 20.7 L [place] % (Auto) 3.6 Eos % (Auto) 2.5 Baso % (Auto) 2.0 Neut # (Auto) 9500 H Lymph # (Auto) 2800 [place] # (Auto) 500 Eos # (Auto) 300 Baso # (Auto) 300 H Blood Type AB Positive Antibody Screen Negative Assessment and Plan Assessment and Plan Assessment and Plan narrative: 38yo at 40w6d here with PROM. Rupture at 7pm last night. GBS negative, Rh positive. uncomplicated. - Due to ROM > 12hrs, will start Misoprostol PO. If not increasing contractions after 2 doses plan to transition to pitocin. - FHT reassuring - GBS negative, no prophylaxis indicated - Epidural for pain control when desired Time-Based Coding :: [TOTAL MINUTES] spent with patient and on the chart (including review of chart, obtaining history, exam, reviewing outside data, placing orders, documenting exam and treatment plan, and counseling patient) on [DATE].
[2024-09-18] MEDS: LACTATED RINGERS 1,000 ML 100 ML IV ×2 (12:31→19:15)
[2024-09-18] MEDS: OXYTOCIN PREMIX 30 UNIT/500 ML PLAST..BAG IV (16:52)
--- NOTE | 2024-09-18 19:54 | PM.AN.REGBLK ---
Regional Block Pre-procedure Procedure: Continuous Lumbar Epidural for L&D Attending OB provider: Eva Keys PMH/ROS narrative: Pt is a 38yo at 40w6d here for IOL. Requesting epidural for labor pain relief. PSH/Anesthesia history narrative: See pre-anesthesia evaluation ASA Class: II Labs: Hct 32.2 % (36-46) L 09/18/24 04:05 Plt Count 279 X10^3/uL (150-400) 09/18/24 04:05 Medications: Current Medications Generic Name Dose Route Start Last Admin Trade Name Freq PRN Reason Stop Dose Admin Carboprost Tromethamine 250 mcg 09/18/24 03:13 Carboprost 250 Mcg/Ml Ampul IM Q90M PRN Bleeding Diphenhydramine HCl 25 mg 09/18/24 15:48 Diphenhydramine 50 Mg/Ml Vial IV Q10M PRN Pruritis Ephedrine Sulfate 10 mg 09/18/24 15:48 Ephedrine 50 Mg/Ml Vial IV Q5M PRN Blood pressure decrease more than 20% of baseline. Oxytocin/Lactated Ringer's 30 unit in 500 mls @ 200 mls/hr 09/18/24 03:13 Oxytocin Premix IV CONT PRN Bleeding Protocol Tranexamic Acid 1,000 mg/ 100 mls @ 600 mls/hr 09/18/24 03:13 Sodium Chloride IV NOW PRN Bleeding FENT 2MCG/ML BUPIV 0.125% EPI 200 mcg in 100 mls @ 6 mls/hr 09/18/24 16:00 Fentanyl/Bupiv/Ns 2mcg/Ml - 0.125% EPIDURAL CONT LUIS DANIEL Oxytocin/Lactated Ringer's 30 unit in 500 mls @ 1 mls/hr 09/18/24 16:45 09/18/24 16:52 Oxytocin Premix IV 1 milliunit/min TITRATE LUIS DANIEL 1 mls/hr Administration Protocol 1 MILLIUNIT/MIN Lidocaine HCl 20 ml 09/18/24 03:13 Lidocaine 1% 20 Ml INJ INTRA-OP PRN Post Delivery Methylergonovine Maleate 0.2 mg 09/18/24 03:13 Methylergonovine 0.2 Mg Tablet PO Q6HR PRN Heavy Bleeding Methylergonovine Maleate 0.2 mg 09/18/24 03:13 Methylergonovine 0.2 Mg/Ml Vial IM NOW PRN Bleeding Mineral Oil 30 ml 09/18/24 03:13 Mineral Oil 30 Ml Udc TOP PRN PRN Version Misoprostol 800 mcg 09/18/24 03:13 Misoprostol 200 Mcg Tablet OK NOW PRN Bleeding Misoprostol 400 mcg 09/18/24 03:13 Misoprostol 200 Mcg Tablet SL NOW PRN Bleeding Misoprostol 50 mcg 09/18/24 08:00 09/18/24 12:28 Misoprostol 25 Mcg Tablet PO 50 mcg Q4H LUIS DANIEL Administration Nalbuphine HCl 2.5 mg 09/18/24 15:48 Nalbuphine 20 Mg/Ml Ampul IV Q10M PRN Pruritis Naloxone HCl 0.2 mg 09/18/24 03:13 Naloxone 0.4 Mg/Ml Vial IV Q2MIN PRN Opiate Reversal Ondansetron HCl 4 mg 09/18/24 19:23 Ondansetron 4 Mg/2 Ml Inj IV Q6HR PRN Nausea And Vomiting Oxytocin 10 unit 09/18/24 03:13 Oxytocin 10 Unit/Ml Vial IM NOW PRN Bleeding Allergies: Allergies Allergy/AdvReac Type Severity Reaction Status Date / Time No Known Drug Allergies Allergy Verified 09/18/24 06:24 Procedure Insertion date: 09/18/24 Insertion time: 18:10 Prep/Local: 1% lidocaine (Chloraprep) Interspace: L3-L4 Patient position: sitting Needle: 18 gauge Hustead (And 25 ga pencan spinal needle for CSE) Loss of resistance with: saline EDDIE at (cm): 4 Catheter placed at SKIN (cm): 12 Sensory level: Initially T7, decreased to T8/T9 after sitting upright. Insertion: Yes CSF, No Blood, No Paresthesia with insertion, No Paresthesia with injection and No Test dose reaction Initial Medications TEST DOSE time: 18:21 TEST DOSE: 1.5% lidocaine with epinephrine 1:200k (mL): 3 BOLUS DOSE time: 18:20 BOLUS DOSE med: other (50mcg fentanyl and 0.5ml 1% PF lidocaine intrathecal. 50mcg fentanyl, 2ml 1% PF lidocaine epidural bolus following catheter placement. ) Infusion INFUSION: 0.125% bupivacaine and with fentanyl 2 mcg/mL Initial rate (mL/hr): 6 (3ml PCEA q15min) Subsequent interventions: 22:41: Called to bedside for increased labor pain, unrelieved by PCEA. Dermatome T11/T12. Bolused with 5ml 1.5% lidocaine with 1:200k epinephrine, 50mcg fentanyl, 5ml 2% lidocaine, 5ml 0.25% bupivacaine (in 2 divided doses). Post-procedure Anesthesia date START: 09/18/24 Anesthesia time START: 18:10 Anesthesia date END: 09/18/24 Anesthesia time END: 23:28 Post-procedure Anesthesia Assessment: Yes CV function: HR/BP stable, Yes Resp function: RR/sat/airway adequate, Yes Post-op hydration adequate, Yes Pain control adequate, Yes Nausea & vomiting absent, Yes Temperature > 36 C, Yes Mental status appropriate and No Anesthesia complications
[2024-09-18] MEDS: ONDANSETRON 4 MG/2 ML INJ IV (20:03)
[2024-09-18] MEDS: OXYTOCIN PREMIX 30 UNIT/500 ML PLAST..BAG 200 UNIT IV (23:35)
--- NOTE | 2024-09-18 23:45 | PM.OBPRVD ---
Labor & Delivery Delivery date: 09/18/24 Delivery Time: 23:28 Intrapartal Events: None Cervical ripening method: per misoprostal protocol Induction method: per pitocin protocol Delivery monitor: external FHT and external uterine Route of delivery: Episiotomy description: None L&D Laceration Description: None Quantitative Blood Loss: 200 Anesthesia Type: Epidural Complications: None Narrative: PROCEDURE: at 40w6d presented with PROM and was admitted to Labor and Delivery. SROM occured at 19:00 the night prior to delivery with clear fluid. She received 2 doses of Misoprostol orally, and then was started on pitocin. The patient progressed through the 1st stage over 7 hours. Pain was controlled with an epidural. The patient progressed through the 2nd stage over 18min and delivered a viable female with APGARs 7/9 at 23:28 via without complication. Body cord x1 was reduced after delivery. The cord was cut and clamped after it stopped pulsating. The placenta delivered with gentle cord traction, and appeared complete. The perineum and vagina were inspected with no lacerations. Needle and sponge counts were correct.? The vagina was inspected and no items were left in situ. Timothy was doing well with her (not yet named) and Cory, father of baby, at bedside. PREPROCEDURE DIAGNOSIS: Intrauterine at 40w6d GBS negative RH positive POSTPROCEDURE DIAGNOSIS: Intrauterine at 40w6d, delivered Same as preprocedure [place] Baby 1: Infant gender: Female Presentation: vertex Position: Right Occiput Anterior Placenta delivery description: Spontaneous Cord Vessel Description: 3 Vessels and Around Body x1 score (1 min): 8 score (5 min): 9 weight: 8 lb 1.949 oz Plan for aftercare: Routine care
[2024-09-19] MEDS: IBUPROFEN 600 MG TABLET PO ×3 (00:45→20:48)
[2024-09-19] MEDS: ACETAMINOPHEN 325 MG TABLET 650 MG PO ×3 (06:30→20:47)
[2024-09-19] MEDS: DERMOPLAST SPRAY 20% 60 ML 1 SPRAY TOP (08:50)
[2024-09-19] MEDS: DOCUSATE 100 MG CAPSULE PO (08:51)
[2024-09-19] MEDS: FERROUS SULFATE 325 MG TABLET PO (08:51)
[2024-09-19] MEDS: LANOLIN OINT 7 GM 1 APPLIC TOP (08:51)
[2024-09-19] MEDS: WITCH HAZEL/GLYCERIN PADS 1 EACH TOP (08:51)
[2024-09-19] MEDS: PRENATAL VIT,CALC/IRON/FOLIC 1 TABLET 1 TAB PO (08:51)
--- NOTE | 2024-09-20 01:58 | PM.OBDS.1 ---
Discharge Providers Provider Date of admission: 09/18/24 00:46 Discharge Date: 09/20/24 Primary care physician: Magdalena Walton MD Consults: 09/18/24 03:13 Consult to Anesthesiology Urgent Comment: Consulting Provider: Kaelyn Womack Reason for consultation: Epidural 09/19/24 23:42 Consult to Mixing Machine Attendant Routine Comment: Discharge provider: Eva Keys MD Summary Hospital Course Date Patient Seen: 09/20/24 Diagnoses: Intrauterine at 40w6d GBS negative RH positive PROM Hospital Course: The pt presented with PROM. She received 2 doses of cytotec and then was initiated on pitocin. She received an epidural for pain control. She progressed to complete dilation and had an uncomplicated of a viable baby girl. , there were no complications. At the time of discharge she was voiding, ambulating, and passing flatus without difficulty. Her lochia was decreasing appropriately. Her pain was well controlled. She was with good latch. She will f/u in 6 weeks for check. Peripartum Data Infant Delivery Method: Natural Vaginal Laceration Description: None Episiotomy description: None Procedures: Spontaneous vaginal delivery complications: none 1: Gender: Female Disposition of : home Time Spent with Patient Time attestation: Total time spent providing and/or coordinating discharge services: Objective Labs 09/18/24 04:05 Discharge Plan Discharge Plan Patient Disposition: Home Discharge orders & Medications Prescriptions: Continued prenat.vits,clare,[id number] Tablet 1 tab PO DAILY Follow up/Referrals: Magdalena Walton MD [Primary Care Provider] - Eva Keys MD [Physician] - 11/01/24 1:30 pm (Please follow up with Dr. Keys for your appointment on November 01, 2024 @1:30pm. Please arrive at 1:15pm!) Diet/Activity/Treatments Diet: Diet as Tolerated and Regular Skin/Wound/Dressing Care Report to your healthcare provider any signs of infection, such as:: chills, fever, increased pain and unusual drainage Visit Report/Discharge Packet Instructions: DI for Hemorrhage, Fitness, DI for Depression Stand Alone Forms: Discharge: Care, Patient Portal/API, Stroke Signs & Symptoms Discharge Data Primary Care Provider: Magdalena Walton Discharges patient from system. Discharge Date/Time: 09/20/24 09:55
[2024-09-20] MEDS: ACETAMINOPHEN 325 MG TABLET 650 MG PO (03:05)
[2024-09-20] MEDS: IBUPROFEN 600 MG TABLET PO ×2 (03:05→09:41)
[2024-09-20] MEDS: DOCUSATE 100 MG CAPSULE PO (09:40)
[2024-09-20] MEDS: PRENATAL VIT,CALC/IRON/FOLIC 1 TABLET 1 TAB PO (09:40)
[2024-09-20] MEDS: FERROUS SULFATE 325 MG TABLET PO (09:41)
== END 2024-09-20 09:55 | disposition home or self-care (01) | DRG 560 ==
PROVIDERS: Admitting Provider Obstetrics & Gynecology; PCP Specialist; Referring Provider Obstetrics & Gynecology; Visit Provider Obstetrics & Gynecology
DX: O42.12 Full-term premature rupture of membranes, onset of labor more than 24 hours following rupture (principal); Z3A.40 40 weeks gestation of pregnancy; Z37.0 Single live birth
CPT/HCPCS: 59050; 59409; 85025; 86850; 86900; 86901; G0379; J2405; J2590; J3010